=== PATIENT | female | born 1965 | race Caucasian/White ===

== ENCOUNTER → 2018-08-24 | Outpatient (CLI) | payer MEDICARE | END | disposition home or self-care (01) | LOC: CFH 08:34 | PROVIDERS: ATTEND Internal Medicine Critical Care Medicine | DX: I51.7 Cardiomegaly (principal); R06.02 Shortness of breath; K76.0 Fatty (change of) liver, not elsewhere classified; M47.899 Other spondylosis, site unspecified; Z90.49 Acquired absence of other specified parts of digestive tract | CPT/HCPCS: 71250 ==